=== PATIENT | female | born 1990 | race African-American/Black ===

== ENCOUNTER → 2018-09-05 | Outpatient (CLI) | payer OTHER ==
--- NOTE | 2018-09-05 17:30 | US ---
EXAMINATION TYPE: US pelvic complete DATE OF EXAM: 09/05/2018 COMPARISON: NONE CLINICAL HISTORY: ovarian cyst N83.0. TECHNIQUE: Transvaginal (TV) and Transabdominal (TA) . Transabdominal sonographic images of the pelvis were acquired. Transvaginal sonographic images were medically necessary to better assess the following anatomy: Date of LMP: 08/30/18 EXAM MEASUREMENTS: Uterus: 6.4 x 3.7 x 3.7 cm Endometrial Stripe: 0.5 cm Right Ovary: 9.7 x 7.8 x 5.6 x 5.6 Left Ovary: Obscured by overlying bowel gas 1. Uterus: Anteverted, fibroid measuring 1.7 x 0.8 x 1.3cm 2. Endometrium: wnl 3. Right Ovary: in right adnexa there is a cystic structure with possible solid component measuring 9.0 x 7.2 x 5.6cm, difficult to assess borders transvaginally due to size. 4. Left Ovary: Obscured by overlying bowel gas 5. Bilateral Adnexa: wnl 6. Posterior cul-de-sac: some possible free fluid IMPRESSION: 1. There is a 1.7 cm hypoechoic mass involving the uterus which is nonspecific but most likely related to fibroid correlate clinically. 2. Within the right adnexa there is a large complex cystic mass measuring 9 x 7.2 x 5.6 cm. Due to its size is difficult to fully evaluate. Differential diagnosis would include benign and malignant neoplasms of the ovary 3. left ovary is not visualized secondary to bowel gas. 4. Small amount of free fluid in the pelvis. 5. Findings suggestive of uterine fibroid. MTDD
== END | disposition home or self-care (01) ==
LOC: RADUSWWP 14:55
PROVIDERS: ATTEND Obstetrics & Gynecology
DX: N85.8 Other specified noninflammatory disorders of uterus (principal)
CPT/HCPCS: 76830; 76856

== ENCOUNTER → 2018-09-09 | Outpatient (CLI) | payer OTHER | END | disposition home or self-care (01) | LOC: LABWHC1 12:47 | PROVIDERS: ATTEND Obstetrics & Gynecology | DX: N83.9 Noninflammatory disorder of ovary, fallopian tube and broad ligament, unspecified (principal) | CPT/HCPCS: 36415 ==

== ENCOUNTER 2018-09-25 08:17 | Observation (INO) | payer OTHER ==
--- NOTE | 2018-09-24 19:58 | P.HPOB ---
History of Present Illness H&P Date: 09/24/18 Chief Complaint: Ovarian cyst Patient is a 27-year-old female with a large right ovarian cyst. She was noted in August to have a 3 cm ovarian mass, a repeat ultrasound done approximately 4 weeks later showed the cyst had essentially tripled in size is now 9 x 7 cm. A an oval 1 study was done but revealed low likelihood for cancer. She is therefore scheduled for a robotic-assisted diagnostic laparoscopy possible cystotomy possible oophorectomy. Risks and benefits did include but were not limited to bleeding, infection, damage to bladder, bowel, vascular degrees, nerve injuries or ureteral injuries. She is aware that while there is less than 10% chance that this could be cancer at the that chance does still exist would prefer to move forward with surgery as she is having daily pain is rated as 6-7 out of 10 essentially all the time. On physical exam vital signs are stable and afebrile. Heart regular, lungs clear, extremities without pain. Abdomen is soft and nontender but is obese. Pelvic exam does reveal some fullness in the right adnexa. Assessment right ovarian cyst plan diagnostic laparoscopy possible cystectomies possible cystotomy possible oophorectomy Past Medical History Past Medical History: No Reported History History of Any Multi-Drug Resistant Organisms: None Reported Past Surgical History: Adenoidectomy, Ear Surgery, Tonsillectomy Past Anesthesia/Blood Transfusion Reactions: No Reported Reaction Smoking Status: Never smoker - Past Family History Father Family Medical History: Hypertension Mother Family Medical History: Hypertension Medications and Allergies Home Medications Medication Instructions Recorded Confirmed Type No Known Home Medications 09/19/18 09/19/18 History Allergies Allergy/AdvReac Type Severity Reaction Status Date / Time vancomycin Allergy Anaphylaxis Verified 09/19/18 11:33 Exam Osteopathic Statement: *. No significant issues noted on an osteopathic structural exam other than those noted in the History and Physical/Consult. - OBG Physical Exam Breast: both: normal (no masses) Abdomen: bowel sounds normal, no diffuse tenderness, no bruit present, no guarding noted, no hepatomegaly, no splenomegaly, no mass Vulva: both: normal Vagina: normal moisture, no discharge Cervix: no lesion, no discharge Uterus: normal size, normal contour Adnexa: right: mass, tenderness, left: normal
[~2018-09-25 08:17] MED LIST: DEXAMETHASONE SOD PHOSPHATE 10 MG/ML 1 ML VIAL IV ONE; HYDROmorphone 0.5 MG/0.5 ML SYRINGE IVP PRN; LIDOCAINE 1% 20 ML VIAL (10MG/ML) FOR IV START INTRADERMA PRN; SCOPOLAMINE 1.5MG/72HR PATCH TRANSDERM ONE; ceFAZolin IN SWFI 2 GM/20 ML SYRINGE IVP ONE
[2018-09-25] MEDS: LACTATED RINGERS 1,000 ML IV SCH (09:28)
[2018-09-25] MEDS: ONDANSETRON 4 MG/2 ML VIAL IVP ONE ×2 (09:31→13:43)
[2018-09-25] MEDS ORDERED: ROCURONIUM BROMIDE 10 MG/ML 10 ML VIAL IV ONE (10:26)
[2018-09-25] MEDS ORDERED: HYDROmorphone (PF) 1 MG/ML ONE (10:26)
[2018-09-25] MEDS ORDERED: ACETAMINOPHEN IV (For NPO) 1,000 MG/100 ML VIAL ONE (10:26)
[2018-09-25] MEDS ORDERED: PROPOFOL 10 MG/ML 20 ML VIAL IV ONE (10:26)
[2018-09-25] MEDS ORDERED: MIDAZOLAM 2 MG/2 ML VIAL ONE (10:26)
[2018-09-25] MEDS ORDERED: KETOROLAC 30 MG/ML 1 ML VIAL ONE (10:26)
[2018-09-25] MEDS ORDERED: GLYCOPYRROLATE 0.2 MG/ML 2 ML VIAL ONE (10:26)
[2018-09-25] MEDS ORDERED: fentaNYL (PF) 50 MCG/ML 2 ML AMP ONE (10:26)
[2018-09-25] MEDS ORDERED: NEOSTIGMINE 1 MG/ML 10 ML VIAL ONE (10:26)
[2018-09-25] MEDS ORDERED: LIDOCAINE 1% INJ 10MG/ML (20 ML MDV) ONE (10:26)
[2018-09-25] MEDS ORDERED: LIDOCAINE 1% INJ 10MG/ML (20 ML MDV) SQ ONE (11:02)
[2018-09-25] MEDS ORDERED: LACTATED RINGERS 1,000 ML IV ONE (11:32)
[2018-09-25] MEDS ORDERED: ONDANSETRON 4 MG/2 ML VIAL IVP PRN ×2 (13:18→20:36)
[2018-09-25] MEDS ORDERED: SIMETHICONE 80 MG CHEWABLE PO PRN (13:18)
[2018-09-25] MEDS ORDERED: HYDROcodone/APAP 7.5-325MG 1 EACH TAB PO PRN (13:20)
--- NOTE | 2018-09-25 13:33 | P.OP ---
Date of Procedure: 09/25/18 Preoperative Diagnosis: Right ovarian cyst and pelvic pain Postoperative Diagnosis: Midline pelvic cyst likely emanating from left ovary appeared to be endometrioma. Significant adhesions of bowel to this cyst as well as to the left hemipelvis with complete obliteration of the posterior cul-de-sac. Also had bowel adhesion to the right fallopian tube. Hydrosalpinx and torsion of left fallopian tube with what appeared to be kinking off of that tube. Procedure(s) Performed: Diagnostic laparoscopy with lysis of adhesions, left salpingo-oophorectomy, chromotubation of right fallopian tube Anesthesia: RANJEET Surgeon: Pavel Roberts Template Maker #1: Eliza Aceves Estimated Blood Loss (ml): 150 IV fluids (ml): 1,600 Urine output (ml): 450 Pathology: other (Left tube and ovary) Condition: stable Disposition: floor Operative Findings: Significant adhesions to the right fallopian tube, complete obliteration of the posterior cul-de-sac, large at least 10 cm endometrioma significant lysis of adhesions needed to be performed during this surgery Description of Procedure: Patient was taken to the operating suite where a general anesthetic was found be adequate. She was prepped and draped in normal sterile fashion and placed in the dorsal lithotomy position. Initially a speculum was inserted into the vagina and anterior lip of the cervix identified and grasped with an Allis clamp. It was then dilated and sounded and then a uterine manipulator was inserted difficulty. Red rubber catheter was then placed and clear urine is noted. Gloves were then changed and attention was turned to the abdominal portion procedure where 2 mL of quarter percent Marcaine was injected periumbilically. Through this injected anesthetic a 5 mm skin incision was made and through this incision under direct visualization with an optical trocar and sleeve the camera was inserted. Once peritoneal placement was assured gas was allowed to fully inflate the abdomen and patient was then placed in steep Trendelenburg position. 2 lateral ports of 8 mm were placed 10-12 cm from the umbilicus and the same plane. Through these incisions da [place] ports and sleeves were inserted a fourth port and sleeve was then inserted through a 1 cm incision slightly superior to and lateral to the umbilical port. Once this was accomplished da [place] port was placed in the umbilical site and laparoscopic equipment was removed and robot was brought in and docked. Once robot was docked using a scissor and the one arm and a [place] grasper in the 2 arm I did break scrub and go to the console. Observations pelvis were then obtained. Patient had a very large endometrioma that had bowel attached to the endometrioma in multiple spots and these were bluntly and sharply dissected free without using any cautery. Once the bowel was removed from this cyst the cyst actually broke and brownish fluid was suctioned out. Once the cyst wall was also excised during this process once the cyst was clear it was apparent that there was complete obliteration of the posterior cul-de-sac and at that point it was difficult even to identify structures. Using blunt dissection we were able to dissect posteriorly freeing up the adhesions and moving the bowel out of the posterior cul-de-sac as best as possible and we were then able to identify the left round ligament and fallopian tube which were then dissected free bluntly and with some sharp dissection minimal coagulation was used during the majority of the surgery. Once that fallopian tube was dissected free was noted to have a kink near the fimbriated end and the ovary was then able to be identified still stuck deep in the cul-de-sac blunt dissection of that to free it was also then performed with the ovary having significant trauma from both the adhesions and the dissection. Once we were able to free the ovary from the posterior cul-de-sac was elevated and due to the scarring and damage to the fallopian tube and ovary and with observation of the right fallopian tube and ovary appearing grossly unremarkable, the infundibulopelvic ligament was identified cauterized and transected moving medially from the fimbriated end of the fallopian tube the mesosalpinx was cauterized transected and this was done immediately to the utero-ovarian tissues which were cauterized and cut and then the left ovary and fallopian tube were excised. At this point we did do some cauterization to maintain or obtain hemostasis along the pedicle as well as a along the bed of the posterior uterus due to the adhesions that had been present. Once excellent hemostasis was obtained we were then able to identify the rectum which was bluntly dissected free of the remainder of the scar tissue allowing the uterus to now be completely free. Inspection of the right fallopian tube was then done and again grossly other than some mild edema it appeared normal, however as week traced to the fimbriated end it was noted that there was scarring of the fallopian tube to the ascending colon it was therefore bluntly dissected away from the ascending colon allowing this tissue to now be free and then using dilute methylene blue chromotubation was done to verify patency. It was noted to be patent. Once all of the pelvis was as clean as we were able to get it with complete separation of the bowel from the ovarian mass and the sac and with the left fallopian tube and ovary removed irrigation of the pelvis was done. Once this completed [place] of Interceed was placed in the posterior cul-de-sac to hopefully limit the amount of scarring that occurs following this procedure. Once this was accomplished the instruments were removed and a gallbladder bag was placed through the 1 mm port and the ovary and a small fibroid that had been excised was also placed in the bag. It was then removed through this port. Robot was then undocked and removed from the field laparoscopic camera was then used to verify no further bleeding and seeing no further bleeding and no evidence of gross injury to any other structures including small or large intestine, the remainder of the incidents and cath were removed and gas was allowed to expel from the abdomen. 5 deep breaths were provided during this process. 4-0 Vicryl was then used to close incision subcuticularly and another 7-8 mL of quarter percent Marcaine were injected around these incisions. All instruments were removed from the field at this point and incidents removed vagina. It should be noted that intraoperatively a Owens catheter was placed to drain the bladder urine. It also should be noted that during the process of blunt and sharp dissection there were times when a cardia grasper was inserted set of the scissor to medical records assistant blunt dissection of the adhesions. Significant adhesions were noted throughout the process but the vast majority of adhesions were dissected free at the conclusion of the procedure. Once all this was completed sponge, lap, needle counts were all correct 2. Patient was then taken to the recovery room in stable and satisfactory condition.
[2018-09-25] MEDS ORDERED: diphenhydrAMINE 50 MG/ML 1 ML VIAL IVP ONE (13:45)
[2018-09-25] MEDS ORDERED: SCOPOLAMINE 1.5MG/72HR PATCH TRANSDERM ONE (18:00)
[2018-09-25 20:22] VITALS: BMI 37.8
[2018-09-25] MEDS ORDERED: METOCLOPRAMIDE 5 MG/ML 2 ML VIAL IVP PRN (20:37)
[2018-09-26] MEDS: KETOROLAC 30 MG/ML 1 ML VIAL IVP PRN ×2 (06:33→12:46)
[2018-09-26 06:59] LABS: Basophils % (A) 0 %; Eosinophils # (A) 0.2 k/uL (0-0.7); Eosinophils % (A) 2 %; HCT 32.6 % (34.0-46.0); HGB 10.4 gm/dL (11.4-16.0); Lymphocytes # (A) 1.6 k/uL (1.0-4.8); Lymphocytes % (A) 12 %; MCH 24.1 pg (25.0-35.0); MCHC 31.8 g/dL (31.0-37.0); MCV 75.6 fL (80.0-100.0); Mean Platelet Volume 6.4; Monocytes # (A) 0.6 k/uL (0-1.0); Monocytes % (A) 5 %; Neutrophils # (A) 10.1 k/uL (1.3-7.7); Neutrophils % (A) 81 %; Platelet Count 271 k/uL (150-450); RBC 4.31 m/uL (3.80-5.40); RDW 13.1 % (11.5-15.5); WBC 12.5 k/uL (3.8-10.6)
--- NOTE | 2018-09-26 09:06 | P.PN ---
Progress Note - Text Progress Note Date: 09/26/18 Patient is doing well this morning. Yesterday and last night she barely had multiple episodes of emesis likely due to anesthesia, a scopolamine patch was placed and symptoms didn't improve. She is feeling much improved this morning is tolerating some liquids. We'll plan to continue to monitor her through the morning with hopes to get her home later today or tomorrow. Vital signs are otherwise stable and she is afebrile. I did discuss findings with she and her mother again this morning of surgery and she seemed to understand what we found an what was really causing her pain and symptoms. All questions are answered for her at this time. We'll plan to increase her ambulation and once she is passing flatus and tolerating a diet trying discharge her to home. But heart regular, lungs clear, extremities without pain. Abdomen is soft and nontender with positive bowel sounds noted. Her incisions are otherwise clean dry and intact. Assessment postop day 1. Land continue current care.
--- NOTE | 2018-09-26 13:25 | P.DS ---
Providers Date of admission: 09/25/18 21:13 Expected date of discharge: 09/26/18 Attending physician: Pavel Roberts Primary care physician: Gaurang Claudine [facility] Course: Patient is doing very well at this time. She voices no complaints and is tolerating her diet. She is passing flatus. We'll plan discharged to home later today. Vital signs are stable and afebrile. No other changes from physical exam this morning and all other questions are answered for her pertinent. Detailed description of discharge instructions were reviewed and she is stable for discharge this time. She'll follow up with me in approximately 2 weeks. Patient Condition at Discharge: Good Plan - Discharge Summary Discharge Rx Participant: Yes New Discharge Prescriptions: New Ibuprofen [Motrin] 600 mg PO Q6HR PRN #30 tab PRN Reason: Pain HYDROcodone/APAP 5-325MG [[place] 5-325] 1 tab PO Q4HR PRN #30 tab PRN Reason: Pain Discharge Medication List HYDROcodone/APAP 5-325MG [[place] 5-325] 1 tab PO Q4HR PRN #30 tab 09/26/18 [Rx] Ibuprofen [Motrin] 600 mg PO Q6HR PRN #30 tab 09/26/18 [Rx] Follow up Appointment(s)/Referral(s): Pavel Roberts DO [Doctor of Osteopathic Medicine] - 2 Weeks Activity/Diet/Wound Care/Special Instructions: No heavy lifting, limit stairs and driving, and pelvic rest. If any high temperatures, heavy bleeding, or severe pain call my office Discharge Disposition: HOME SELF-CARE
[2018-09-26 14:33] VITALS: BP 120/78; PULSE 62; RESP 20; TEMP 98
== END 2018-09-26 14:21 | disposition home or self-care (01) ==
LOC: OR 08:17 → 6PED 12:58 → OR 21:13
PROVIDERS: ADMIT Obstetrics & Gynecology; ATTEND Obstetrics & Gynecology
DX: D27.1 Benign neoplasm of left ovary (principal); N83.12 Corpus luteum cyst of left ovary; N80.2 Endometriosis of fallopian tube; N70.11 Chronic salpingitis; N83.522 Torsion of left fallopian tube; E66.9 Obesity, unspecified; K66.0 Peritoneal adhesions (postprocedural) (postinfection); Z68.38 Body mass index [BMI] 38.0-38.9, adult; Z98.890 Other specified postprocedural states; Z88.1 Allergy status to other antibiotic agents; Z82.49 Family history of ischemic heart disease and other diseases of the circulatory system
CPT/HCPCS: 58350; 58661; S2900; 81025; 85025; 88307; 88341; 88342

== ENCOUNTER → 2019-06-17 | Outpatient (CLI) | payer OTHER ==
--- NOTE | 2019-06-18 07:18 | US ---
EXAMINATION TYPE: US pelvis complete transvag DATE OF EXAM: 06/17/2019 COMPARISON: US 09/05/2018 CLINICAL HISTORY: R10.2 PELVIC PAIN. Left ovary surgically absent TECHNIQUE: . Transabdominal sonographic images of the pelvis were acquired. Transvaginal sonographi c images were medically necessary to better assess the following anatomy: Ovaries and uterus Date of LMP: 06/01/2019 EXAM MEASUREMENTS: Uterus: 7.2 x 4.3 x 4.2 cm Endometrial Stripe: 1.0 cm Right Ovary: 5.2 x 3.2 x 4.6 cm Left Ovary: Surgically absent 1. Uterus: Anteverted Heterogeneous. Hypoechoic area visualized measuring 1.5 x 1.2 x 1.8 cm, prob able fibroid 2. Endometrium: wnl 3. Right Ovary: Hypoechoic area visualized measuring 4.0 x 2.4 x 3.0 cm. This previously measured up to 9.0 x 7.2 x 5.6 cm. 4. Left Ovary: Surgically absent Spectral, color and waveform doppler imaging shows good arterial and venous flow within the ovaries ; there is no evidence for ovarian torsion in right ovary 5. Bilateral Adnexa: Small amount of free fluid visualized in left adnexa 6. Posterior cul-de-sac: wnl IMPRESSION: 1. Decrease in size of the right ovarian complex mass previously measuring up to 9.7 cm on the exam o f 09/05/2018 and currently measuring up to 4.0 cm. The current appearance suggest endometrioma or hemo rrhagic cyst. 2. Heterogenous probable fibroid uterus with the most circumscribed appearing submucosal measuring 1. 8 cm. 3. Surgical absence of the left ovary and scant amount of free pelvic fluid, likely physiologic in na ture.
== END | disposition home or self-care (01) ==
LOC: RADUSWWP 16:18
PROVIDERS: ATTEND Obstetrics & Gynecology
DX: N83.8 Other noninflammatory disorders of ovary, fallopian tube and broad ligament (principal); Z90.721 Acquired absence of ovaries, unilateral
CPT/HCPCS: 76830; 76856

== ENCOUNTER → 2021-01-16 | Outpatient (CLI) | payer OTHER ==
--- NOTE | 2021-01-16 16:03 | US ---
EXAMINATION TYPE: US pelvic complete DATE OF EXAM: 01/16/2021 COMPARISON: 06/17/2019 CLINICAL HISTORY: R10.2 Pelvic pain, N83.0 Rt ovarian cyst. Intermittent right pelvic pain x 2 months , history of ovarian cysts, 0, history of left ovary removed 2018. TECHNIQUE Transabdominal sonographic images of the pelvis were acquired. Transvaginal sonographic im ages were medically necessary to better assess the following anatomy: Endometrium Date of LMP: 12/28/2020 EXAM MEASUREMENTS: Uterus: 6.6 x 3.9 x 3.9 cm Endometrial Stripe: 0.6 cm Right Ovary: 7.7 x 4.9 x 5.7 cm 1. Uterus: anteverted, heterogeneous with 1.5 x 1.5 x 2.1cm hypoechoic area left fundus, probable fi broid 2. Endometrium: 6 mm is within normal limits demonstrating female. 3. Right Ovary: 5.6 x 4.2 x 4.3cm complex septated cyst 4. Left Ovary: surgically absent 5. Bilateral Adnexa: wnl 6. Posterior cul-de-sac: wnl IMPRESSION: 1. Heterogeneous structure within the left uterine fundus measuring 1.5 x 1.5 x 2.1 cm is most sugges tive of a fibroid. 2. Complex cystic structure with multiple septations is within the right ovary measuring 5.6 cm. This is likely a evolving hemorrhagic cyst but is indeterminate due to large size. A repeat sonographic s tudy is recommended in 6 weeks. 3. Left oophorectomy.
== END | disposition home or self-care (01) ==
LOC: RADUSWWP 14:53
PROVIDERS: ATTEND Obstetrics & Gynecology
DX: N83.201 Unspecified ovarian cyst, right side (principal); Z90.721 Acquired absence of ovaries, unilateral
CPT/HCPCS: 76830; 76856

== ENCOUNTER → 2021-04-04 | Outpatient (CLI) | payer OTHER ==
--- NOTE | 2021-04-04 14:46 | US ---
EXAMINATION TYPE: US pelvis complete transvag DATE OF EXAM: 04/04/2021 COMPARISON: US CLINICAL HISTORY: N83.0 Right ovarian Cyst. Hx right ovarian cyst. Left ovary removed in 2019. G0. TECHNIQUE: Transvaginal (TV) and Transabdominal (TA) . Transabdominal sonographic images of the pel vis were acquired. Transvaginal sonographic images were medically necessary to better assess the fol lowing anatomy: Endometrium and right adnexa. Date of LMP: Unknown. EXAM MEASUREMENTS: Uterus: 6.7 x 3.7 x 4.0 cm Endometrial Stripe: 1.31 cm 1. Uterus: Anteverted Two hypoechoic areas seen fundally. #1: 1.9 x 1.4 x 1.5 cm. #2: 1.8 x 1.3 x 1.4 cm. Hyperechoic area seen in cervix: 0.6 x 0.3 x 0.2 cm. 2. Endometrium: 1.31 cm. LMP unknown. 3. Right Ovary: See right adnexa. ?Complex area could resemble portion of right ovarian tissue. 4. Left Ovary: Removed. 5. Bilateral Adnexa: Large complex vascular area seen within the right adnexa measuring 11.1 x 7.0 x 6.8 cm. Free fluid seen in right adnexa and left adnexa. 6. Posterior cul-de-sac: Free fluid seen. IMPRESSION: 1. Uterine fibroids. 2. Complex area within the right adnexa. This includes both cystic and solid components. Additional w orkup is recommended.
== END | disposition home or self-care (01) ==
LOC: RADUSWWP 13:04
PROVIDERS: ATTEND Obstetrics & Gynecology
DX: D25.9 Leiomyoma of uterus, unspecified (principal); N83.01 Follicular cyst of right ovary
CPT/HCPCS: 76830; 76856; 93976

== ENCOUNTER → 2022-03-27 | Outpatient (CLI) | payer OTHER ==
--- NOTE | 2022-03-27 08:10 | US ---
EXAMINATION TYPE: US transvaginal DATE OF EXAM: 03/27/2022 COMPARISON: NONE CLINICAL HISTORY: N93.9 ABNORMAL VAG BLEEDING,. left oophorectomy and h/o right ovarian cyst, past cy lester lasted 3 weeks TECHNIQUE: TV. Transvaginal sonographic images Date of LMP: 02/22/2022 EXAM MEASUREMENTS: Uterus: 7.3 x 3.8 x 3.6 cm Endometrial Stripe: 1.0 cm Right Ovary: 4.8 x 3.6 x 3.3 cm Left Ovary: Surgically absent 1. Uterus: Anteverted wnl 2. Endometrium: wnl 3. Right Ovary: 3.8 x 2.9 x 2.8cm complex cyst, decreased in size from imaging last year 4. Left Ovary: Surgically absent 5. Bilateral Adnexa: wnl 6. Posterior cul-de-sac: wnl IMPRESSION: Persistent complex cyst right ovary however diminished in size from prior examination. Consider follo w-up.
--- NOTE | 2022-03-27 08:54 | US ---
EXAMINATION TYPE: US abdomen complete DATE OF EXAM: 03/27/2022 COMPARISON: NONE CLINICAL HISTORY: N93.9 ABNORMAL VAG BLEEDING,. no symptoms per patient, order diagnosis all pelvic r elated TECHNIQUE: Multiple sonographic images of the abdomen are obtained. FINDINGS: EXAM MEASUREMENTS: Liver Length: 14.5 cm Gallbladder Wall: 0.3 cm CBD: 0.4 cm Spleen: 10.4 cm Right Kidney: 9.1 x 5.3 x 4.9 cm Left Kidney: 11.3 x 5.0 x 6.3 cm Pancreas: obscured by bowel gas Liver: intercostal imaging due to bowel gas subcostally, appears wnl Gallbladder: wnl Evidence for sonographic Wren's sign: no CBD: wnl Spleen: wnl Right Kidney: wnl Left Kidney: probable dromedary hump, wnl Upper IVC: wnl Abd Aorta: wnl The liver is homogenous. The intrahepatic portion of the IVC and proximal abdominal aorta are within normal limits. There is no evidence of cholelithiasis. Common bile duct is unremarkable. The visu alized portions of the pancreas are homogenous. The spleen is unremarkable. Kidneys are symmetric a nd free of hydronephrosis. No renal lesions are seen. IMPRESSION: No distinct abnormality
== END | disposition home or self-care (01) ==
LOC: RADUSWWP 06:46
PROVIDERS: ATTEND Family Medicine
DX: N93.9 Abnormal uterine and vaginal bleeding, unspecified (principal)
CPT/HCPCS: 76700; 76830

== ENCOUNTER 2022-11-04 09:22 | Emergency (ER) | payer OTHER ==
[2022-11-04] MEDS ORDERED: diphenhydrAMINE 50 MG/ML 1 ML VIAL IVP STA (10:36)
[2022-11-04] MEDS ORDERED: METOCLOPRAMIDE 5 MG/ML 2 ML VIAL IVP STA (10:36)
[2022-11-04] MEDS ORDERED: SODIUM CHLORIDE 0.9% 1,000 ML IV STA (10:36)
[2022-11-04] MEDS ORDERED: DEXAMETHASONE SOD PHOSPHATE 10 MG/ML 1 ML VIAL IVP STA (10:36)
[2022-11-04] MEDS ORDERED: KETOROLAC 15 MG/ML 1 ML VIAL IVP STA (10:36)
--- NOTE | 2022-11-04 10:43 | ED ---
Headache HPI - General Chief Complaint: Headache Stated Complaint: High BP, headache Time Seen by Provider: 11/04/22 10:20 Source: patient, RN notes reviewed Mode of arrival: ambulatory Limitations: no limitations - History of Present Illness Initial Comments: This is a 31-year-old female who presents to the emergency department for a headache. States that this started 3-4 days ago. She feels like this is more so left-sided and behind the left eye. Denies any visual changes or weakness. Also reports chills, night sweats, and elevated blood pressure. She has measured her blood pressure in the 140s-150s systolically. On 10/15 she did have 2 cysts removed from the right ovary as well as a D&C. States that she is unsure if her hormones may be trying to return to normal. Denies any vaginal bleeding or discharge. She has mild residual abdominal pain, however she states that it is improving and not any worse than normal. Denies any substantial history of headaches, however she would not describe this as the worst headache of her life. She has tried taking ibuprofen, Excedrin Migraine, and other riyv-ida-ebhgldl medications with no relief. She has minor nausea and photophobia. Denies any fevers, chills, sore throat, cough, dyspnea, chest pain, palpitations, abdominal pain, vomiting, diarrhea, or back pain. MD Complaint: headache Onset/Timin -: days(s) Location: left, retro-orbital - Related Data Home Medications Medication Instructions Recorded Confirmed Ergocalciferol (Vitamin D2) 1,250 mcg PO Q30D 11/04/22 11/04/22 [Drisdol (50,000 Iu)] Previous Rx's Medication Instructions Recorded Ibuprofen [Motrin] 600 mg PO Q6HR PRN #30 tab 09/26/18 Ketorolac [Toradol] 10 mg PO Q6HR PRN #12 tab 11/04/22 SUMAtriptan succinate 50 mg PO DIRECTED PRN #15 tablet 11/04/22 Allergies Allergy/AdvReac Type Severity Reaction Status Date / Time vancomycin Allergy Anaphylaxis Verified 11/04/22 12:50 Review of Systems ROS Statement: Those systems with pertinent positive or pertinent negative responses have been documented in the HPI. ROS Other: All systems not noted in ROS Statement are negative. Past Medical History Past Medical History: No Reported History History of Any Multi-Drug Resistant Organisms: None Reported Past Surgical History: Adenoidectomy, Ear Surgery, Tonsillectomy Additional Past Surgical History / Comment(s): ovarian cyst removal and D&C, left ovary removed in 2019 Past Anesthesia/Blood Transfusion Reactions: Postoperative Nausea & Vomiting (PONV) Past Psychological History: No Psychological Hx Reported Smoking Status: Never smoker Past Alcohol Use History: None Reported Past Drug Use History: Marijuana - Past Family History Father Family Medical History: Hypertension Mother Family Medical History: Hypertension General Exam Limitations: no limitations General appearance: alert, in no apparent distress Head exam: Present: atraumatic, normocephalic, normal inspection Eye exam: Present: normal appearance, PERRL, EOMI. Absent: scleral icterus, conjunctival injection, periorbital swelling Respiratory exam: Present: normal lung sounds bilaterally. Absent: respiratory distress, wheezes, rales, rhonchi, stridor Cardiovascular Exam: Present: regular rate, normal rhythm, normal heart sounds. Absent: systolic murmur, diastolic murmur, rubs, gallop, clicks Neurological exam: Present: alert, oriented X3, CN II-XII intact Psychiatric exam: Present: normal affect, normal mood Skin exam: Present: warm, dry, intact, normal color. Absent: rash Course Vital Signs 11/04/22 11/04/22 11/04/22 09:34 11:36 13:39 Temperature 97.7 F 98.7 F Pulse Rate 82 66 88 Respiratory 18 20 16 Rate Blood Pressure 144/92 133/115 132/74 O2 Sat by Pulse 100 100 100 Oximetry Medical Decision Making - Medical Decision Making This is a 31-year-old female who presents to the emergency department for a headache. Was pt. sent in by a medical professional or institution? @ -No Did you speak to anyone other than the patient for history? @ -No Did you review nursing and triage notes? @ -Yes, and I agree, it is accurate with regards to the patient's symptoms. Were old charts reviewed? @ -No Differential Diagnosis? @ -Differential Headache: Migraine, tension, cluster, carbon monoxide, central venous thrombosis, pension karma temporal arteritis, acute closure glaucoma, intercranial hemorrhage, mastoiditis, sinusitis, head injury, this is not meant to be an all-inclusive list. CT interpreted by me (1pt min.)? @ -Computed tomography scan of the brain obtained. My interpretation identi fies no evidence of an acute intracranial hemorrhage or mass effect. What testing was considered but not performed? (CT, X-rays, U/S, labs)? Why? @ -None What meds were considered but not given? Why? @ -None Did you discuss the management of the patient with other professionals? @ -No Did you reconcile home meds? @ -No Was smoking cessation discussed for >3mins.? @ -No Was critical care preformed (if so, how long)? @ -No Were there social determinants of health that impacted care today? How? (Homelessness, low income, unemployed, alcoholism, drug addiction, transportation, low edu. Level, literacy, decrease access to med. care, [facility], rehab)? @ -No Was there de-escalation of care discussed even if they declined? (Discuss DNR or withdrawal of care, Hospice)? @ -No What co-morbidities impacted this encounter? (DM, HTN, Smoking, COPD, CAD, Cancer, CVA, Hep., AIDS, mental health diagnosis, sleep apnea, morbid obesity)? @ -None Was patient admitted / discharged? @ -Discharged. Lab work obtained and found to be nonactionable. Patient given a migraine cocktail consisting of IV fluids, Toradol, Decadron, Benadryl, and Reglan. She had resolution of symptoms following medication administration. Given that headaches are not common for her, she did request imaging. Computed tomography scan of the brain obtained without any acute findings identified. Prescription for Toradol and sumatriptan provided with dosing instructions reviewed. She is instructed to take the Toradol with Tylenol and avoid taking i t with any over the counter antiinflammatories such as Ibuprofen. She will follow up with her PCP for reevaluation of symptoms. Undiagnosed new problem with uncertain prognosis? @ -None Drug Therapy requiring intensive monitoring for toxicity (Heparin, Nitro, Insulin, Cardizem)? @ -None Were any procedures done? @ -None Diagnosis/symptom? @ -Headache Acute, or Chronic, or Acute on Chronic? @ -Acute Uncomplicated (without systemic symptoms) or Complicated (systemic symptoms)? @ -Uncomplicated Side effects of treatment? @ -None Exacerbation, Progression, or Severe Exacerbation] @ -Not applicable Poses a threat to life or bodily function? @ -No Return precautions reviewed in depth, the patient is instructed to return to the emergency department with any new, worsening, or concerning symptoms. Patient verbalized understanding. This case was discussed in detail with the attending ED physician, Dr. Cortez. Presentation, findings, and treatment plan discussed in detail as well. - Lab Data Result diagrams: 11/04/22 11:12 11/04/22 11:12 Lab Results 11/04/22 11/04/22 11/04/22 Range/Units 11:12 11:12 11:12 WBC 6.4 (3.8-10.6) k/uL RBC 4.68 (3.80-5.40) m/uL Hgb 11.6 (11.4-16.0) gm/dL Hct 36.9 (34.0-46.0) % MCV 78.7 L (80.0-100.0) fL MCH 24.8 L (25.0-35.0) pg MCHC 31.5 (31.0-37.0) g/dL RDW 12.8 (11.5-15.5) % Plt Count 341 (150-450) k/uL MPV 7.4 Neutrophils % 65 % Lymphocytes % 25 % Monocytes % 5 % Eosinophils % 3 % Basophils % 0 % Neutrophils # 4.2 (1.3-7.7) k/uL Lymphocytes # 1.6 (1.0-4.8) k/uL Monocytes # 0.3 (0-1.0) k/uL Eosinophils # 0.2 (0-0.7) k/uL Basophils # 0.0 (0-0.2) k/uL ESR 18 (0-20) mm/hr Sodium (137-145) mmol/L Potassium (3.5-5.1) mmol/L Chloride (98-107) mmol/L Carbon Dioxide (22-30) mmol/L Anion Gap mmol/L BUN (7-17) mg/dL Creatinine (0.52-1.04) mg/dL Est GFR (CKD-EPI)AfAm (>60 ml/min/1.73 sqM) Est GFR (CKD-EPI)NonAf (>60 ml/min/1.73 sqM) Glucose (74-99) mg/dL Calcium (8.4-10.2) mg/dL Total Bilirubin (0.2-1.3) mg/dL AST (14-36) U/L ALT (4-34) U/L Alkaline Phosphatase (38-126) U/L Total Protein (6.3-8.2) g/dL Albumin (3.5-5.0) g/dL TSH (0.465-4.680) mIU/L Free T4 (0.78-2.19) ng/dL Urine Color Yellow Urine Appearance Clear (Clear) Urine pH 5.5 (5.0-8.0) Ur Specific [place] 1.019 (1.001-1.035) Urine Protein Negative (Negative) Urine Glucose (UA) Negative (Negative) Urine Ketones Negative (Negative) Urine Blood Negative (Negative) Urine Nitrite Negative (Negative) Urine Bilirubin Negative (Negative) Urine Urobilinogen <2.0 (<2.0) mg/dL Ur Leukocyte Esterase Small H (Negative) Urine RBC 1 (0-5) /hpf Urine WBC 13 H (0-5) /hpf Ur Squamous Epith Cells 2 (0-4) /hpf Urine Mucus Occasional H (None) /hpf Urine HCG, Qual Not Detected (Not Detectd) Influenza Type A (PCR) (Not Detectd) Influenza Type B (PCR) (Not Detectd) RSV (PCR) (Not Detectd) SARS-CoV-2 (PCR) (Not Detectd) 11/04/22 11/04/22 Range/Units 11:12 11:12 WBC (3.8-10.6) k/uL RBC (3.80-5.40) m/uL Hgb (11.4-16.0) gm/dL Hct (34.0-46.0) % MCV (80.0-100.0) fL MCH (25.0-35.0) pg MCHC (31.0-37.0) g/dL RDW (11.5-15.5) % Plt Count (150-450) k/uL MPV Neutrophils % % Lymphocytes % % Monocytes % % Eosinophils % % Basophils % % Neutrophils # (1.3-7.7) k/uL Lymphocytes # (1.0-4.8) k/uL Monocytes # (0-1.0) k/uL Eosinophils # (0-0.7) k/uL Basophils # (0-0.2) k/uL ESR (0-20) mm/hr Sodium 138 (137-145) mmol/L Potassium 4.2 (3.5-5.1) mmol/L Chloride 105 (98-107) mmol/L Carbon Dioxide 27 (22-30) mmol/L Anion Gap 6 mmol/L BUN 13 (7-17) mg/dL Creatinine 0.79 (0.52-1.04) mg/dL Est GFR (CKD-EPI)AfAm >90 (>60 ml/min/1.73 sqM) Est GFR (CKD-EPI)NonAf >90 (>60 ml/min/1.73 sqM) Glucose 94 (74-99) mg/dL Calcium 9.0 (8.4-10.2) mg/dL Total Bilirubin 0.5 (0.2-1.3) mg/dL AST 21 (14-36) U/L ALT 16 (4-34) U/L Alkaline Phosphatase 92 (38-126) U/L Total Protein 7.6 (6.3-8.2) g/dL Albumin 4.0 (3.5-5.0) g/dL TSH 0.404 L (0.465-4.680) mIU/L Free T4 1.26 (0.78-2.19) ng/dL Urine Color Urine Appearance (Clear) Urine pH (5.0-8.0) Ur Specific [place] (1.001-1.035) Urine Protein (Negative) Urine Glucose (UA) (Negative) Urine Ketones (Negative) Urine Blood (Negative) Urine Nitrite (Negative) Urine Bilirubin (Negative) Urine Urobilinogen (<2.0) mg/dL Ur Leukocyte Esterase (Negative) Urine RBC (0-5) /hpf Urine WBC (0-5) /hpf Ur Squamous Epith Cells (0-4) /hpf Urine Mucus (None) /hpf Urine HCG, Qual (Not Detectd) Influenza Type A (PCR) Not Detected (Not Detectd) Influenza Type B (PCR) Not Detected (Not Detectd) RSV (PCR) Not Detected (Not Detectd) SARS-CoV-2 (PCR) Not Detected (Not Detectd) - Radiology Data Radiology results: report reviewed, image reviewed Disposition Clinical Impression: Headache Disposition: HOME SELF-CARE Instructions (If sedation given, give patient instructions): Acute Headache (ED) Additional Instructions: Return to the emergency department with any new, worsening, or concerning symptoms. You can try taking the Toradol if the pain returns. If you choose to take the Toradol, do not take any other [id number] anti-inflammatories. You can take this with Tylenol. You can also try taking 1-2 tablets of the sumatriptan at the onset of a headache. You may repeat the dose in 2 hours if symptoms persist. Do not take more than 200mg in 24 hours. Follow up with your primary care provider in 1-2 days. Prescriptions: SUMAtriptan succinate 50 mg PO DIRECTED PRN #15 tablet PRN Reason: Headache Ketorolac [Toradol] 10 mg PO Q6HR PRN #12 tab PRN Reason: Pain Is patient prescribed a controlled substance at d/c from ED?: No Referrals: Fernando Silva MD [Primary Care Provider] - 1-2 days
[2022-11-04 11:28] LABS: Basophils % (A) 0 %; Eosinophils # (A) 0.2 k/uL (0-0.7); Eosinophils % (A) 3 %; HCT 36.9 % (34.0-46.0); HGB 11.6 gm/dL (11.4-16.0); Lymphocytes # (A) 1.6 k/uL (1.0-4.8); Lymphocytes % (A) 25 %; MCH 24.8 pg (25.0-35.0); MCHC 31.5 g/dL (31.0-37.0); MCV 78.7 fL (80.0-100.0); Mean Platelet Volume 7.4; Monocytes # (A) 0.3 k/uL (0-1.0); Monocytes % (A) 5 %; Neutrophils # (A) 4.2 k/uL (1.3-7.7); Neutrophils % (A) 65 %; Platelet Count 341 k/uL (150-450); RBC 4.68 m/uL (3.80-5.40); RDW 12.8 % (11.5-15.5); WBC 6.4 k/uL (3.8-10.6)
[2022-11-04 12:01] LABS: Appearance,Urine Clear (Clear); Bilirubin,Urine Negative (Negative); Blood,Urine Negative (Negative); Color,Urine Yellow; Glucose,Urine (UA) Negative (Negative); Ketones,Urine Negative (Negative); Leukocyte Esterase,Urine Small (Negative); Mucus,Urine Occasional /hpf; Nitrite,Urine Negative (Negative); PH, Urine 5.5 (5.0-8.0); Protein,Urine Negative (Negative); RBC,Urine 1 /hpf (0-5); Specific Gravity,Urine 1.019 (1.001-1.035); Squamous Epithelial Cell,Urine 2 /hpf (0-4); Urobilinogen,Urine <2.0 mg/dL (<2.0); WBC,Urine 13 /hpf (0-5)
[2022-11-04 12:19] LABS: ALT 16 U/L (4-34); AST 21 U/L (14-36); African American GFR (CKD) >90 (>60 ml/min/1.73 sqM); Alkaline Phosphatase 92 U/L (38-126); Anion Gap 6 mmol/L; Blood Urea Nitrogen 13 mg/dL (7-17); Carbon Dioxide 27 mmol/L (22-30); Chloride 105 mmol/L (98-107); Glucose 94 mg/dL (74-99); Non-African American GFR(CKD) >90 (>60 ml/min/1.73 sqM); Potassium 4.2 mmol/L (3.5-5.1); Sodium 138 mmol/L (137-145); Total Bilirubin 0.5 mg/dL (0.2-1.3); Total Protein 7.6 g/dL (6.3-8.2)
--- NOTE | 2022-11-04 12:47 | CT ---
EXAMINATION TYPE: CT brain wo con DATE OF EXAM: 11/04/2022 COMPARISON: 11/25/2012 HISTORY: headache CT DLP: [address] of the brain was performed. The ventricles, basal cisterns and sulci overlying the cerebral convexities demonstrate a normal appe arance. There is no evidence for intracranial hemorrhage or sulcal effacement. No mass effects are seen. Osseous calvarium is intact. If symptoms persist consider MRI as clinically warranted. Mild chronic ethmoidal sinusitis. IMPRESSION: 1. No acute intracranial process is seen at this time.
[2022-11-04 12:51] LABS: Erythrocyte Sedimentation Rate 18 mm/hr (0-20)
[2022-11-04 13:33] LABS: T4, Free (Free Thyroxine) 1.26 ng/dL (0.78-2.19)
[2022-11-04 13:40] VITALS: BP 132/74; PULSE 88; RESP 16; TEMP 98.7
[2022-11-04 15:01] LABS: C Reactive Protein 1.3 mg/dL (<1.0)
== END 2022-11-04 13:45 | disposition home or self-care (01) ==
LOC: EC 09:22
DX: J32.2 Chronic ethmoidal sinusitis (principal); F12.90 Cannabis use, unspecified, uncomplicated; Z88.1 Allergy status to other antibiotic agents; Z20.822 Contact with and (suspected) exposure to COVID-19
CPT/HCPCS: 99284 ×2; 96374 ×2; 96375 ×4; 96361 ×2; 36415; 84439; 80053; 85652; 84443; 85025; 86140; 81001; 81025; 87636; 70450; J1200; J1100; J2765; J1885